=== PATIENT | male | born 1945 | race Caucasian/White ===

== ENCOUNTER 2021-10-08 09:42 | Emergency (ER) | payer OTHER, MEDICARE ==
[2021-10-08 09:50] VITALS: RESP 18; TEMP 98.4
--- NOTE | 2021-10-08 09:57 | ED ---
General Adult HPI - General Chief complaint: Fall Stated complaint: fall, rt hip pain Time Seen by Provider: 10/08/21 09:47 Source: patient, EMS, RN notes reviewed Mode of arrival: EMS Limitations: no limitations - History of Present Illness Initial comments: Patient is a pleasant 76-year-old male presenting to the emergency department following a fall. Patient was transferring off of his scooter at home when he fell. Patient landed on his right side. Patient has minimal discomfort at rest but more severe with movement. Patient mostly has discomfort of his right hip. Patient also has some discomfort of right ribs and right shoulder. No dyspnea. No abdominal pain. No neck or back pain. No head injury or loss of consciousness. - Related Data Allergies Allergy/AdvReac Type Severity Reaction Status Date / Time No Known Allergies Allergy Verified 10/08/21 09:51 Review of Systems ROS Statement: Those systems with pertinent positive or pertinent negative responses have been documented in the HPI. ROS Other: All systems not noted in ROS Statement are negative. Constitutional: Denies: fever Eyes: Denies: eye pain ENT: Denies: ear pain Respiratory: Denies: cough, dyspnea Cardiovascular: Reports: as per HPI Endocrine: Denies: fatigue Gastrointestinal: Denies: abdominal pain Genitourinary: Denies: dysuria Musculoskeletal: Reports: as per HPI. Denies: back pain Skin: Denies: rash Neurological: Denies: weakness Past Medical History Past Medical History: COPD, Diabetes Mellitus, Hypertension History of Any Multi-Drug Resistant Organisms: None Reported Past Surgical History: Back Surgery, Orthopedic Surgery Additional Past Surgical History / Comment(s): rectal surgery Past Psychological History: No Psychological Hx Reported Smoking Status: Current every day smoker Past Alcohol Use History: Daily Past Drug Use History: None Reported General Exam Limitations: no limitations General appearance: alert, in no apparent distress Head exam: Present: atraumatic Eye exam: Present: normal appearance, PERRL Neck exam: Present: normal inspection, full ROM. Absent: tenderness Respiratory exam: Present: normal lung sounds bilaterally, chest wall tenderness (Right lateral chest, mild) Cardiovascular Exam: Present: regular rate, normal rhythm Expanded Peripheral pulses: 2+: Radial (R), Posterior Tibialis (R), Dorsalis Pedis (R) GI/Abdominal exam: Present: soft. Absent: tenderness Extremities exam: Present: tenderness (Mild tenderness right shoulder, full range of motion. Moderate tenderness right lateral and anterior hip, limited range of motion.), other (Distally 70s are neurovascularly intact) Neurological exam: Present: alert Psychiatric exam: Present: normal affect, normal mood Skin exam: Present: normal color Course Vital Signs 10/08/21 09:43 Temperature 98.4 F Pulse Rate 67 Respiratory 18 Rate Blood Pressure 98/68 O2 Sat by Pulse 94 L Oximetry Medical Decision Making - Medical Decision Making Patient reevaluated and resting comfortably in bed. Patient is now receptive to pain medication. Patient updated on results. Discussion had regarding CT however patient feels nothing is broken and this is unnecessary. Patient does request discharge home. - Radiology Data Radiology results: image reviewed (X-ray right shoulder, right hip and pelvis, and right ribs reveal no acute abnormality) Disposition Clinical Impression: Fall, Contusion, hip Disposition: HOME SELF-CARE Condition: Stable Instructions (If sedation given, give patient instructions): Fall Prevention (ED), Hip Contusion (ED) Additional Instructions: Please follow-up with primary care physician in the next couple days for recheck. Return for increased pain, unable to take care of self, unable to walk, worsening or change in symptoms or other concerns. Is patient prescribed a controlled substance at d/c from ED?: No Referrals: Alek Dykes MD [STAFF PHYSICIAN] - 1-2 days Time of Disposition: 11:30
--- NOTE | 2021-10-08 10:41 | XR ---
EXAMINATION TYPE: XR shoulder complete RT DATE OF EXAM: 10/08/2021 CLINICAL HISTORY: pain TECHNIQUE: Three views of the right shoulder are obtained. COMPARISON: None FINDINGS: There is no acute fracture/dislocation evident. The acromioclavicular and glenohumeral lachelle int spaces appear within normal limits. The visualized ribs are intact and unremarkable. IMPRESSION: 1. There is no acute fracture or dislocation. ICD 10 NO FRACTURE, INITIAL EVALUATION
--- NOTE | 2021-10-08 10:42 | XR ---
EXAMINATION TYPE: XR Hip RT and AP Pelvis DATE OF EXAM: 10/08/2021 CLINICAL HISTORY: pain TECHNIQUE: AP and frogleg views of the right hip are obtained. Single view of the pelvis is submitte d. COMPARISON: None. FINDINGS: There is no acute fracture/dislocation evident. The joint space appears mildly narrowed. The overlying soft tissue appears unremarkable. Total left hip arthroplasty noted. IMPRESSION: 1. There is no acute fracture or dislocation. ICD 10 NO FRACTURE, INITIAL EVALUATION
--- NOTE | 2021-10-08 10:44 | XR ---
EXAMINATION TYPE: XR ribs RT w pa chest xray DATE OF EXAM: 10/08/2021 COMPARISON: NONE HISTORY: Pain TECHNIQUE: Single view of the chest 4 views of the ribs are submitted. FINDINGS: The lungs are clear. No Evidence for pneumothorax. No evidence for focal contusion. Medi astinal structures are midline. Evaluation of the ribs fails to demonstrate evidence for displaced r ib fracture or secondary sign of rib fracture. IMPRESSION: Negative study
[2021-10-08] MEDS ORDERED: MORPHINE SULFATE 4 MG/ML SYRINGE IVP STA (11:06)
[2021-10-08] MEDS ORDERED: ACET/COD 300 MG/30 MG STARTER PACK 6 TAB BTL PO STA (11:07)
[2021-10-08 12:29] VITALS: BP 100/71; PULSE 79
== END 2021-10-08 12:20 | disposition home or self-care (01) ==
LOC: EC 09:42
DX: S70.01XA Contusion of right hip, initial encounter (principal); J44.9 Chronic obstructive pulmonary disease, unspecified; E11.9 Type 2 diabetes mellitus without complications; I10 Essential (primary) hypertension; F17.200 Nicotine dependence, unspecified, uncomplicated; Z72.89 Other problems related to lifestyle; V00.141A Fall from scooter (nonmotorized), initial encounter
CPT/HCPCS: 71101; 73502; 73030; 99283; 96374; J2270

== ENCOUNTER 2021-12-10 13:18 | Inpatient (IN) | payer OTHER ==
--- NOTE | 2021-12-10 14:06 | ED ---
General Adult HPI - General Chief complaint: Syncope Stated complaint: Syncope Time Seen by Provider: 12/10/21 13:46 Source: patient, EMS Mode of arrival: EMS Limitations: no limitations - History of Present Illness Initial comments: Dictation was produced using [employer] dictation software. please excuse any grammatical, word or spelling errors. Chief Complaint: 76-year-old male with past medical history of COPD, diabetes and hypertension presents after syncopal episode History of Present Illness: 76-year-old male he was sent in from the [place] clinic. Patient had a syncopal episode while in the office. Patient states he's had multiple syncopal episodes over the last couple months. Patient states that before he syncopized as he starts to feel a little lightheaded. Patient denies any history of heart failure. Patient states he knows he's been passing out at home because he wakes up on the floor. He has no pain today. Patient has any chest pain or shortness of breath. He has no known history of cardiac disease or heart failure. Patient does have some bedsores that have been chronic. Patient otherwise asymptomatic at the bedside. The ROS documented in this emergency department record has been reviewed and confirmed by me. Those systems with pertinent positive or negative responses have been documented in the HPI. All other systems are other negative and/or noncontributory. PHYSICAL EXAM: General Impression: Alert and oriented x3, not in acute distress HEENT: Normocephalic atraumatic, extra-ocular movements intact, pupils equal and reactive to light bilaterally, mucous membranes moist. Cardiovascular: Heart regular rate and rhythm Chest: Able to complete full sentences, no retractions, no tachypnea Abdomen: abdomen soft, non-tender, non-distended, no organomegaly Musculoskeletal: Pulses present and equal in all extremities, no peripheral edema Motor: no focal deficits noted Neurological: CN II-XII grossly intact, no focal motor or sensory deficits noted Skin: Intact with no visualized rashes Psych: Normal affect and mood ED course: 76-year-old now presents to the emergency department after syncopal episode. Vital signs upon arrival shows heart rate of 111, rest of vital signs within acceptable limits. EKG shows sinus tachycardia. Computer interpretation suggests A. fib however there is a lot of artifact. quality assurance monitor body shows regular P waves. Laboratory evaluation obtained. CBC metabolic panel is within acceptable limits. Troponin is negative. Brain natruretic peptide is 1350. Patient was or the emergency department for proximally 4 hours. He is reevaluated at 5:00 PM found to be stable medical condition. Patient observed in emergency department. Patient's vital signs improved. He is resting comfortably at the bedside. Given patient's age, frequent syncopal episodes and slight concern for heart failure patient be admitted to observation for cardiac monitoring and cardiology consultation. Patient admitted to city call. EKG interpretation: Ventricular rate 104, computer interpretation suggests A. fib with rapid ventricular response however there is a lot of artifact and there is difficulty delineating P waves. The QRS complexes do appear to be occurring at regular intervals.. quality assurance monitor body shows more clear P waves. EKG is likely sinus tachycardia. - Related Data Home Medications Medication Instructions Recorded Confirmed Albuterol Inhaler [Ventolin Hfa 1 puff INHALATION RT-QID PRN 12/10/21 12/10/21 Inhaler] Ascorbic Acid [Vitamin C] 250 mg PO DAILY 12/10/21 12/10/21 Aspirin EC [Ecotrin Low Dose] 81 mg PO DAILY 12/10/21 12/10/21 Atorvastatin [Lipitor] 40 mg PO HS 12/10/21 12/10/21 Cholecalciferol [Vitamin D3 (25 50 mcg PO DAILY 12/10/21 12/10/21 Mcg = 1000 Iu)] Escitalopram Oxalate [Lexapro] 10 mg PO DAILY 12/10/21 12/10/21 Ferrous Sulfate [Feosol] 325 mg PO DAILY 12/10/21 12/10/21 Fluticasone Nasal [place] [Flonase 1 spray EA NOSTRIL DAILY 12/10/21 12/10/21 Nasal [place]] Fluticasone/Salmeterol [Advair 1 puff INHALATION RT-BID 12/10/21 12/10/21 250-50 Diskus] Folic Acid 1 mg PO DAILY 12/10/21 12/10/21 Furosemide [Lasix] 20 mg PO DAILY 12/10/21 12/10/21 Ipratropium-Albuterol Nebulize 3 ml INHALATION RT-Q6H PRN 12/10/21 12/10/21 [Duoneb 0.5 mg-3 mg/3 ml Soln] Megestrol Acetate 10 mg PO DAILY 12/10/21 12/10/21 Metoprolol Succinate [Toprol XL] 25 mg PO DAILY 12/10/21 12/10/21 Mirtazapine [Remeron] 30 mg PO HS 12/10/21 12/10/21 Montelukast [Singulair] 10 mg PO DAILY 12/10/21 12/10/21 Omeprazole 20 mg PO BID 12/10/21 12/10/21 Potassium Chloride [K-Tab ER] 20 meq PO DAILY 12/10/21 12/10/21 Pyridoxine HCl (Vitamin B6) 25 mg PO DAILY 12/10/21 12/10/21 [Pyridoxine HCl] Tiotropium 18 Mcg/Puff [Spiriva] 2 puff INHALATION RT-DAILY 12/10/21 12/10/21 Allergies Allergy/AdvReac Type Severity Reaction Status Date / Time No Known Allergies Allergy Verified 12/10/21 16:19 Review of Systems ROS Statement: Those systems with pertinent positive or pertinent negative responses have been documented in the HPI. ROS Other: All systems not noted in ROS Statement are negative. Past Medical History Past Medical History: COPD, Diabetes Mellitus, Hypertension History of Any Multi-Drug Resistant Organisms: None Reported Past Surgical History: Back Surgery, Orthopedic Surgery Additional Past Surgical History / Comment(s): rectal surgery Past Psychological History: No Psychological Hx Reported Smoking Status: Current every day smoker Past Alcohol Use History: Daily Past Drug Use History: None Reported General Exam Limitations: no limitations Course Vital Signs 12/10/21 12/10/21 12/10/21 13:29 15:00 16:16 Temperature 97.4 F L Pulse Rate 111 H 98 96 Respiratory 18 18 Rate Blood Pressure 129/79 89/62 110/71 O2 Sat by Pulse 98 95 96 Oximetry Medical Decision Making - Lab Data Result diagrams: 12/10/21 14:08 12/10/21 14:08 Lab Results 12/10/21 12/10/21 12/10/21 Range/Units 14:08 14:08 14:08 WBC 8.5 (3.8-10.6) k/uL RBC 2.89 L (4.30-5.90) m/uL Hgb 9.3 L (13.0-17.5) gm/dL Hct 27.9 L (39.0-53.0) % MCV 96.6 (80.0-100.0) fL MCH 32.3 (25.0-35.0) pg MCHC 33.4 (31.0-37.0) g/dL RDW 16.8 H (11.5-15.5) % Plt Count 219 (150-450) k/uL MPV 7.0 Neutrophils % 78 % Lymphocytes % 12 % Monocytes % 6 % Eosinophils % 2 % Basophils % 0 % Neutrophils # 6.6 (1.3-7.7) k/uL Lymphocytes # 1.0 (1.0-4.8) k/uL Monocytes # 0.5 (0-1.0) k/uL Eosinophils # 0.2 (0-0.7) k/uL Basophils # 0.0 (0-0.2) k/uL Anisocytosis Slight Sodium 132 L (137-145) mmol/L Potassium 3.3 L (3.5-5.1) mmol/L Chloride 92 L (98-107) mmol/L Carbon Dioxide 29 (22-30) mmol/L Anion Gap 11 mmol/L BUN 9 (9-20) mg/dL Creatinine 1.02 (0.66-1.25) mg/dL Est GFR (CKD-EPI)AfAm 84 (>60 ml/min/1.73 sqM) Est GFR (CKD-EPI)NonAf 72 (>60 ml/min/1.73 sqM) Glucose 97 (74-99) mg/dL Calcium 7.4 L (8.4-10.2) mg/dL Troponin I (0.000-0.034) ng/mL NT-Pro-B Natriuret Pep 1350 pg/mL 12/10/21 Range/Units 14:10 WBC (3.8-10.6) k/uL RBC (4.30-5.90) m/uL Hgb (13.0-17.5) gm/dL Hct (39.0-53.0) % MCV (80.0-100.0) fL MCH (25.0-35.0) pg MCHC (31.0-37.0) g/dL RDW (11.5-15.5) % Plt Count (150-450) k/uL MPV Neutrophils % % Lymphocytes % % Monocytes % % Eosinophils % % Basophils % % Neutrophils # (1.3-7.7) k/uL Lymphocytes # (1.0-4.8) k/uL Monocytes # (0-1.0) k/uL Eosinophils # (0-0.7) k/uL Basophils # (0-0.2) k/uL Anisocytosis Sodium (137-145) mmol/L Potassium (3.5-5.1) mmol/L Chloride (98-107) mmol/L Carbon Dioxide (22-30) mmol/L Anion Gap mmol/L BUN (9-20) mg/dL Creatinine (0.66-1.25) mg/dL Est GFR (CKD-EPI)AfAm (>60 ml/min/1.73 sqM) Est GFR (CKD-EPI)NonAf (>60 ml/min/1.73 sqM) Glucose (74-99) mg/dL Calcium (8.4-10.2) mg/dL Troponin I <0.012 (0.000-0.034) ng/mL NT-Pro-B Natriuret Pep pg/mL Disposition Clinical Impression: Syncope Disposition: ADMITTED IP TO THIS [facility] Condition: Fair Referrals: None,Stated [Primary Care Provider] - 1-2 days Decision Time: 17:28
[2021-12-10 14:51] LABS: Calcium 7.4 mg/dL (8.4-10.2); Potassium 3.3 mmol/L (3.5-5.1)
[2021-12-10 14:58] LABS: Anisocytosis Slight; Basophils % (A) 0 %; Eosinophils # (A) 0.2 k/uL (0-0.7); Eosinophils % (A) 2 %; HCT 27.9 % (39.0-53.0); HGB 9.3 gm/dL (13.0-17.5); Lymphocytes % (A) 12 %; MCH 32.3 pg (25.0-35.0); MCHC 33.4 g/dL (31.0-37.0); MCV 96.6 fL (80.0-100.0); Monocytes # (A) 0.5 k/uL (0-1.0); Monocytes % (A) 6 %; Neutrophils # (A) 6.6 k/uL (1.3-7.7); Neutrophils % (A) 78 %; Platelet Count 219 k/uL (150-450); RBC 2.89 m/uL (4.30-5.90); RDW 16.8 % (11.5-15.5); WBC 8.5 k/uL (3.8-10.6)
[2021-12-10] MEDS ORDERED: NALOXONE 0.4 MG/ML 1 ML VIAL IV PRN (17:24)
[2021-12-10] MEDS: SODIUM CHLORIDE 0.9% 1,000 ML IV SCH (19:10)
[2021-12-10] MEDS ORDERED: POTASSIUM CHLORIDE ER 20 MEQ TAB.ER PO STA (20:19)
[2021-12-10] MEDS ORDERED: IPRATROPIUM-ALBUTEROL 3 ML NEB INHALATION PRN (22:31)
[2021-12-10] MEDS ORDERED: ALBUTEROL HFA INHALER INHALATION PRN (22:31)
[2021-12-11] MEDS: SYMBICORT 80-4.5 MCG INHALER INHALATION SCH ×2 (08:30→19:17)
[2021-12-11] MEDS: IPRATROPIUM 0.5 MG/2.5 ML NEBU INHALATION SCH ×4 (08:30→19:16)
[2021-12-11] MEDS: PANTOPRAZOLE 40 MG TABLET PO SCH (08:47)
[2021-12-11] MEDS: FOLIC ACID 1 MG TAB PO SCH (08:47)
[2021-12-11] MEDS: FERROUS SULFATE 325 MG TAB PO SCH (08:47)
[2021-12-11] MEDS: MONTELUKAST 10 MG TAB PO SCH (08:47)
[2021-12-11] MEDS: ASPIRIN 81 MG PO SCH (08:47)
[2021-12-11] MEDS: ASCORBIC ACID 500 MG TAB PO SCH (08:48)
[2021-12-11] MEDS: CHOLECALCIFEROL 25 MCG (1000 IU) TABLET PO SCH (08:48)
[2021-12-11] MEDS: POTASSIUM CHLORIDE ER 20 MEQ TAB.ER PO SCH (08:49)
[2021-12-11] MEDS: MEGESTROL 400 MG/10 ML CUP PO SCH ×2 (08:55→09:16)
[2021-12-11] MEDS: PYRIDOXINE 50 MG TAB PO SCH (08:55)
[2021-12-11] MEDS: ESCITALOPRAM 10 MG TAB PO SCH (08:55)
[2021-12-11] MEDS ORDERED: FUROSEMIDE 20 MG TAB PO SCH (09:00)
[2021-12-11] MEDS ORDERED: METOPROLOL SUCCINATE (ER) 25 MG TAB.ER.24H PO SCH (09:00)
[2021-12-11 10:00] VITALS: BMI 24.0
[2021-12-11] MEDS: SODIUM CHLORIDE 0.9% 1,000 ML IV SCH ×3 (10:36→21:37)
[2021-12-11] MEDS: FLUTICASONE 50MCG/SPRAY NASAL 16GM EA NOSTRIL SCH (11:56)
--- NOTE | 2021-12-11 12:10 | P.CRDCN ---
History of Present Illness Consult date: 12/11/21 Consult reason: sycope History of present illness: This is Tao Delvalle NP, I'm dictating on behalf of Dr. Roman's H&P and A&P The patient was interviewed and examined. HPI: [Patient is a pleasant 76-year-old male who initially presented to hospital with complaints of syncope. Patient reports that he's been passing out consistently over the last few months, and stating that he's passed out around a dozen times. Patient reports that he doesn't eat much at home, reports he drinks no water, but prefers vodka and squirt. Patient reports that the last couple of times he passed out, it was while he was transferring from his roller chair to the bathroom, but states generally passes out when coughing. Patient was evaluated in the emergency department, after having a syncopal episode while at the [place] clinic. Patient was evaluated in the ER, was found to have sinus tachycardia on EKG. Patient's potassium and sodium were found to be low. And patient was subsequently admitted with cardiology consultation for evaluation of the syncope. Patient has a past medical history that includes COPD, diabetes, and hypertension. His past surgical history that includes back surgery, and rectal surgery. Patient reports his current every day smoker, also reports daily alcohol use, but denies illicit substance use. Patient was interviewed and examined while lying in the bed. Patient reports that he feels somewhat better than yesterday. Patient appears to be clinically dry.] ROS: [No fever, chills, or rigors] [no cough, phlegm, or expectoration] [no nausea, vomiting, or diarrhea] [no hematuria, dysuria] [no musculoskelatal complaints] [no strokes or seizures] [no skin lesions] EXAMINATION: GENERAL: Well-appearing, well-nourished and in no acute distress. NECK: Supple without JVD or thyromegaly. LUNGS: Breath sounds clear to auscultation bilaterally. Respiration equal and unlabored. No wheezes, rales or rhonchi. HEART: Regular rate and rhythm without murmurs, rubs or gallops. S1 and S2 heard. EXTREMITIES: Normal range of motion, no edema. No clubbing or cyanosis. Peripheral pulses intact and strong. REVIEW OF LABS, ECG & MEDICAL DATA: LABS: White count 8.5, hemoglobin 9.3, platelets 219, sodium 132, potassium 3.3, B1 9, creatinine 1.0 to, calcium 7.4, troponin 2 less than 0.012, BNP 1350. EKG: Normal sinus rhythm IMAGING: None VITALS: Orthostatics completed this morning demonstrated a blood pressure supine 96/58, sitting 92/62, standing 92/60. Patient's heart rate is elevated at 108, likely secondary to dehydration. IMPRESSION/PLAN: [1. Syncope-likely secondary to dehydration. Start patient on 0.9 sodium chloride at 75 ML/hour. Hold metoprolol today. 2. Dehydration-recheck orthostatics tomorrow morning after IV fluids. Increase sodium intake. Further recommendations based on patient's clinical course.] Thank you for the consult and allowing us to participate in the care of this patient. Past Medical History Past Medical History: COPD, Diabetes Mellitus, Hypertension History of Any Multi-Drug Resistant Organisms: None Reported Past Surgical History: Back Surgery, Orthopedic Surgery Additional Past Surgical History / Comment(s): rectal surgery Past Psychological History: No Psychological Hx Reported Smoking Status: Current every day smoker Past Alcohol Use History: Daily Past Drug Use History: None Reported Medications and Allergies Home Medications Medication Instructions Recorded Confirmed Type Albuterol Inhaler [Ventolin Hfa 1 puff INHALATION RT-QID PRN 12/10/21 12/10/21 History Inhaler] Ascorbic Acid [Vitamin C] 250 mg PO DAILY 12/10/21 12/10/21 History Aspirin EC [Ecotrin Low Dose] 81 mg PO DAILY 12/10/21 12/10/21 History Atorvastatin [Lipitor] 40 mg PO HS 12/10/21 12/10/21 History Cholecalciferol [Vitamin D3 (25 50 mcg PO DAILY 12/10/21 12/10/21 History Mcg = 1000 Iu)] Escitalopram Oxalate [Lexapro] 10 mg PO DAILY 12/10/21 12/10/21 History Ferrous Sulfate [Feosol] 325 mg PO DAILY 12/10/21 12/10/21 History Fluticasone/Salmeterol [Advair 1 puff INHALATION RT-BID 12/10/21 12/10/21 History 250-50 Diskus] Folic Acid 1 mg PO DAILY 12/10/21 12/10/21 History Furosemide [Lasix] 20 mg PO DAILY 12/10/21 12/10/21 History Ipratropium-Albuterol Nebulize 3 ml INHALATION RT-Q6H PRN 12/10/21 12/10/21 History [Duoneb 0.5 mg-3 mg/3 ml Soln] Megestrol Acetate 10 mg PO DAILY 12/10/21 12/10/21 History Metoprolol Succinate [Toprol XL] 25 mg PO DAILY 12/10/21 12/10/21 History Mirtazapine [Remeron] 30 mg PO HS 12/10/21 12/10/21 History Montelukast [Singulair] 10 mg PO DAILY 12/10/21 12/10/21 History Omeprazole 20 mg PO BID 12/10/21 12/10/21 History Potassium Chloride [K-Tab ER] 20 meq PO DAILY 12/10/21 12/10/21 History Pyridoxine HCl (Vitamin B6) 25 mg PO DAILY 12/10/21 12/10/21 History [Pyridoxine HCl] Tiotropium 18 Mcg/Puff [Spiriva] 2 puff INHALATION RT-DAILY 12/10/21 12/10/21 History Gabapentin 900 mg PO BID 12/11/21 12/11/21 History Allergies Allergy/AdvReac Type Severity Reaction Status Date / Time No Known Allergies Allergy Verified 12/10/21 16:19 Physical Exam Vitals: Vital Signs Temp Pulse Pulse Pulse Pulse Pulse Resp 12/11/21 08:42 104 H 12/11/21 08:31 108 H 12/11/21 08:16 16 12/11/21 07:00 116 H 127 H 106 H 12/11/21 01:40 98.4 F 99 16 12/10/21 21:55 98.1 F 104 H 18 12/10/21 21:08 93 18 12/10/21 20:03 98.5 F 103 H 18 12/10/21 16:16 96 18 12/10/21 15:00 97.4 F L 98 12/10/21 13:29 111 H 18 BP BP BP BP BP Pulse Ox 12/11/21 08:42 12/11/21 08:31 12/11/21 08:16 12/11/21 07:00 92/62 92/60 96/58 94 L 12/11/21 01:40 89/55 95 12/10/21 21:55 94/65 97 12/10/21 21:08 95 12/10/21 20:03 101/79 96 12/10/21 16:16 110/71 96 12/10/21 15:00 89/62 95 12/10/21 13:29 129/79 98 Intake and Output 12/10/21 12/11/21 12/11/21 22:59 06:59 14:59 Intake Total 118 Balance 118 Intake: Oral 118 Other: Voiding Method Urinal # Voids 0 1 # Bowel Movements 1 Weight 78.245 kg 78.245 kg Results 12/10/21 14:08 12/10/21 14:08 Cardiac Enzymes 12/10/21 12/10/21 Range/Units 14:08 14:10 Troponin I <0.012 <0.012 (0.000-0.034) ng/mL CBC 12/10/21 Range/Units 14:08 WBC 8.5 (3.8-10.6) k/uL RBC 2.89 L (4.30-5.90) m/uL Hgb 9.3 L (13.0-17.5) gm/dL Hct 27.9 L (39.0-53.0) % Plt Count 219 (150-450) k/uL Comprehensive Metabolic Panel 12/10/21 Range/Units 14:08 Sodium 132 L (137-145) mmol/L Potassium 3.3 L (3.5-5.1) mmol/L Chloride 92 L (98-107) mmol/L Carbon Dioxide 29 (22-30) mmol/L BUN 9 (9-20) mg/dL Creatinine 1.02 (0.66-1.25) mg/dL Glucose 97 (74-99) mg/dL Calcium 7.4 L (8.4-10.2) mg/dL Current Medications Generic Name Dose Route Start Last Admin Trade Name Freq PRN Reason Stop Dose Admin Albuterol/Ipratropium 3 ml 12/10/21 22:31 Ipratropium-Albuterol 3 Ml Neb INHALATION RT-Q6H PRN Shortness Of Breath Ascorbic Acid 250 mg 12/11/21 09:00 12/11/21 08:48 Ascorbic Acid 500 Mg Tab PO 250 mg DAILY UVALDO Administration Aspirin 81 mg 12/11/21 09:00 12/11/21 08:47 Aspirin 81 Mg PO 81 mg DAILY [facility] Administration Atorvastatin Calcium 40 mg 12/11/21 21:00 Atorvastatin 40 Mg Tab PO HS [facility] Budesonide/Formoterol Fumarate 2 puff 12/11/21 08:00 12/11/21 08:30 Symbicort 80-4.5 Mcg Inhaler INHALATION 2 puff RT-BID UVALDO Administration Cholecalciferol 50 mcg 12/11/21 09:00 12/11/21 08:48 Cholecalciferol 25 Mcg (1000 Iu) Tablet PO 50 mcg DAILY [facility] Administration Escitalopram Oxalate 10 mg 12/11/21 09:00 12/11/21 08:55 Escitalopram 10 Mg Tab PO 10 mg DAILY [facility] Administration Ferrous Sulfate 325 mg 12/11/21 09:00 12/11/21 08:47 Ferrous Sulfate 325 Mg Tab PO 325 mg DAILY [facility] Administration Fluticasone Propionate 1 spray 12/11/21 09:00 12/11/21 11:56 Fluticasone 50mcg/Pavo Nasal 16gm EA NOSTRIL Not Given DAILY [facility] Folic Acid 1 mg 12/11/21 09:00 12/11/21 08:47 Folic Acid 1 Mg Tab PO 1 mg DAILY [facility] Administration Furosemide 20 mg 12/11/21 09:00 12/11/21 08:48 Furosemide 20 Mg Tab PO 20 mg DAILY [facility] Administration Sodium Chloride 1,000 mls @ 20 mls/hr 12/10/21 17:30 12/10/21 19:10 Saline 0.9% IV Not Given .Q24H [facility] Sodium Chloride 1,000 mls @ 75 mls/hr 12/11/21 08:45 12/11/21 10:36 Saline 0.9% IV Not Given .[id number] [facility] Ipratropium [place] 0.5 mg 12/11/21 08:00 12/11/21 08:30 Ipratropium 0.5 Mg/2.5 Ml Nebu INHALATION 0.5 mg RT-QID [facility] Administration Megestrol Acetate 400 mg 12/11/21 09:00 12/11/21 09:16 Megestrol 400 Mg/10 Ml Cup PO Not Given DAILY [facility] Metoprolol Succinate 25 mg 12/11/21 09:00 12/11/21 08:53 Metoprolol Succinate (Er) 25 Mg Tab.Er.24h PO Not Given DAILY [facility] Mirtazapine 30 mg 12/11/21 21:00 Mirtazapine 15 Mg Tab PO HS UVALDO Montelukast Sodium 10 mg 12/11/21 09:00 12/11/21 08:47 Montelukast 10 Mg Tab PO 10 mg DAILY U[facility] Administration Naloxone HCl 0.2 mg 12/10/21 17:24 Naloxone 0.4 Mg/Ml 1 Ml Vial IV Q2M PRN Opioid Reversal Pantoprazole Sodium 40 mg 12/11/21 07:30 12/11/21 08:47 Pantoprazole 40 Mg Tablet PO 40 mg [id number] UVALDO Administration Potassium Chloride 20 meq 12/11/21 09:00 12/11/21 08:49 Potassium Chloride Er 20 Meq Tab.Er PO 20 meq DAILY UVALDO Administration Pyridoxine HCl 25 mg 12/11/21 09:00 12/11/21 08:55 Pyridoxine 50 Mg Tab PO 25 mg DAILY UVALDO Administration Intake and Output 12/10/21 12/11/21 12/11/21 22:59 06:59 14:59 Intake Total 118 Balance 118 Intake: Oral 118 Other: Voiding Method Urinal # Voids 0 1 # Bowel Movements 1 Weight 78.245 kg 78.245 kg Patient Weight 12/12/21 06:59 Weight 78.245 kg 12/10/21 14:08 12/10/21 14:08
--- NOTE | 2021-12-11 18:50 | HP ---
HISTORY AND PHYSICAL DATE OF SERVICE: 12/11/2021 CHIEF COMPLAINT: Syncope. HISTORY OF PRESENT ILLNESS: This 76-year-old gentleman with a past medical history of COPD and diabetes mellitus was having recurrent syncope for the last couple of months. The patient apparently had syncope yesterday. The was patient taken to [facility]. The patient was feeling dizzy prior to syncope. There is no history of any fever, rigor or chills. Dehydration was considered. Cardiology is also following the patient closely. PAST MEDICAL HISTORY: History of COPD, diabetes mellitus. HOME MEDICATIONS: Reviewed. They include gabapentin. Doses and other medications are reviewed. ALLERGIES: NONE. FAMILY HISTORY: No history of heart disease or strokes in the family. SOCIAL HISTORY: History of smoking. REVIEW OF SYSTEMS: Fourteen-point review of systems negative except as mentioned earlier. PHYSICAL EXAMINATION: Pulse is 114, blood pressure 95/60, respirations 16. HEENT: Conjunctivae pale. Oral mucosa dry. NECK: No jugular venous distention. No carotid bruit. No lymph node enlargement. CARDIOVASCULAR: S1, S2 muffled. RESPIRATION: Breath sounds diminished at the bases. A few scattered rhonchi. No crackles. ABDOMEN: Soft, nontender. LEGS: No edema. No swelling. NERVOUS SYSTEM: Diffusely weak. LABS: WBC 8.2, hemoglobin 9.7, sodium 138, potassium ntd ASSESSMENT: 1. Syncope for evaluation, possibly orthostatic hypotension secondary to dehydration. 2. Hyponatremia. 3. Hypokalemia. 4. Diabetes mellitus, type 2. 5. Chronic obstructive pulmonary disease. 6. Hypertension. RECOMMENDATIONS AND DISCUSSION: In this 77-year-old gentleman who presented with multiple complex medical problems, we will monitor the patient closely, continue the IV fluids. We will cut down the dose of blood pressure medications. Orthostatic vitals. Stop the diuretics. The prognosis is guarded because of multiple complex medical issues. Further recommendations to follow. See orders for further details. Closely follow with Cardiology. Prognosis guarded. MMODL / IJN: [id number] / MTDD
[2021-12-11] MEDS: MIRTAZAPINE 15 MG TAB PO SCH (19:59)
[2021-12-11] MEDS: ATORVASTATIN 40 MG TAB PO SCH (19:59)
[2021-12-11] MEDS: GABAPENTIN 300 MG CAP PO SCH (20:43)
[2021-12-12 07:37] LABS: Appearance,Urine Clear (Clear); Bilirubin,Urine Negative (Negative); Blood,Urine Negative (Negative); Color,Urine Yellow; Glucose,Urine (UA) Negative (Negative); Ketones,Urine Negative (Negative); Leukocyte Esterase,Urine Trace (Negative); Nitrite,Urine Negative (Negative); Protein,Urine Negative (Negative); Squamous Epithelial Cell,Urine <1 /hpf (0-4); Urobilinogen,Urine <2.0 mg/dL (<2.0); WBC,Urine 2 /hpf (0-5)
[2021-12-12] MEDS: SYMBICORT 80-4.5 MCG INHALER INHALATION SCH ×2 (08:26→18:37)
[2021-12-12] MEDS: IPRATROPIUM 0.5 MG/2.5 ML NEBU INHALATION SCH ×4 (08:26→18:37)
[2021-12-12] MEDS: FERROUS SULFATE 325 MG TAB PO SCH (08:48)
[2021-12-12] MEDS: FOLIC ACID 1 MG TAB PO SCH (08:48)
[2021-12-12] MEDS: CHOLECALCIFEROL 25 MCG (1000 IU) TABLET PO SCH (08:48)
[2021-12-12] MEDS: PANTOPRAZOLE 40 MG TABLET PO SCH (08:48)
[2021-12-12] MEDS: MONTELUKAST 10 MG TAB PO SCH (08:48)
[2021-12-12] MEDS: POTASSIUM CHLORIDE ER 20 MEQ TAB.ER PO SCH (08:48)
[2021-12-12] MEDS: GABAPENTIN 300 MG CAP PO SCH ×2 (08:48→19:56)
[2021-12-12] MEDS: PYRIDOXINE 50 MG TAB PO SCH (08:49)
[2021-12-12] MEDS: ESCITALOPRAM 10 MG TAB PO SCH (08:49)
[2021-12-12] MEDS: FLUTICASONE 50MCG/SPRAY NASAL 16GM EA NOSTRIL SCH (08:51)
[2021-12-12] MEDS: MEGESTROL 400 MG/10 ML CUP PO SCH (08:51)
[2021-12-12] MEDS: ASPIRIN 81 MG PO SCH (08:51)
[2021-12-12] MEDS: ASCORBIC ACID 500 MG TAB PO SCH (08:51)
[2021-12-12] MEDS: METOPROLOL SUCCINATE (ER) 25 MG TAB.ER.24H PO SCH (10:30)
[2021-12-12] MEDS: FLUDROCORTISONE 0.1 MG TAB PO SCH (11:38)
[2021-12-12 11:56] LABS: African American GFR (CKD) 97.2 (60.0-200.0); Anion Gap 10.6 mmol/L (10.00-18.00); BUN/Creat Ratio 9.44 Ratio (12.00-20.00); Blood Urea Nitrogen 8.5 mg/dL (9.0-27.0); Calcium 7.8 mg/dL (8.7-10.3); Carbon Dioxide 32.4 mmol/L (20.0-27.5); Non-African American GFR(CKD) 83.8 (60.0-200.0); Potassium 3.7 mmol/L (3.5-5.5)
[2021-12-12 12:17] LABS: Basophils # (A) 0.04 X 10*3/uL (0.00-0.10); Basophils % (A) 0.7 %; Eosinophils # (A) 0.37 X 10*3/uL (0.04-0.35); Eosinophils % (A) 6.2 %; Immature Grans, Automated 0.5 %; Lymphocytes # (A) 1.19 X 10*3/uL (0.90-5.00); Monocytes # (A) 0.58 X 10*3/uL (0.20-1.00); Monocytes % (A) 9.7 %; NRBC Per 100 WBC 0 /100 WBCS (0.0-0.0); Neutrophils # (A) 3.75 X 10*3/uL (1.80-7.70); Neutrophils % (A) 62.9 %
[2021-12-12 12:21] LABS: HCT 21.7 % (39.6-50.0); HGB 6.8 g/dL (13.0-17.0); MCH 31.3 pg (27.0-32.0); MCHC 31.3 g/dL (32.0-37.0); Mean Platelet Volume 8.9 fL (9.5-12.2); Platelet Count 188 X 10*3/uL (140-440); RBC 2.17 X 10*6/uL (4.40-5.60); RDW 15.6 % (11.5-14.5); WBC 5.96 X 10*3/uL (4.50-10.00)
[2021-12-12] MEDS ORDERED: FUROSEMIDE 10 MG/ML 2 ML VIAL IV ONE (13:21)
--- NOTE | 2021-12-12 14:32 | P.PN ---
Subjective Progress Note Date: 12/12/21 This is Tao Delvalle NP, I'm dictating on behalf of Dr. Roman's H&P and A&P. Patient was interviewed and examined. Patient is a pleasant 76-year-old male who initially presented to the hospital with complaints of syncope. Patient reports that he is feeling better today. Orthostatic vital signs checked this morning were positive, with a sitting to standing drop of greater than 20 mmHg. Patient is receiving IV fluids since yesterday. His blood pressure does show improvement. Patient is on metoprolol for elevated heart rates, and his heart rate is elevated despite the metoprolol. It is felt at this time the patient may be experiencing withdrawal symptoms secondary to alcohol use. Will start Librium 10 mg 3 times a day when necessary for withdrawal symptoms. Recommend medical management for possible withdrawal symptoms. Will be difficult to manage the patient from a cardiology standpoint if the patient is active withdrawal. Patient is requesting to be discharged today. It's also noted the patient's hemoglobin is 6.8 today. Recommend possible general surgery consult for potential GI bleed. GENERAL: Well-appearing, well-nourished and in no acute distress. NECK: Supple without JVD or thyromegaly. LUNGS: Breath sounds clear to auscultation bilaterally. Respiration equal and u nlabored. No wheezes, rales or rhonchi. HEART: Regular rate and rhythm without murmurs, rubs or gallops. S1 and S2 heard. EXTREMITIES: Normal range of motion, no edema. No clubbing or cyanosis. Pe ripheral pulses intact and strong. VITALS: Temp 98.2, pulse 126, respirations 16, blood pressure 104/68 supine, 108/68 sitting, 76/53 standing. O2 saturation 95% on room air. TELEMETRY: Sinus tachycardia LABS: White count 5.96, hemoglobin 6.8, platelets 188, sodium 140, potassium 3.7, B1 8.5, creatinine 0.9 IMPRESSION/PLAN: 1. Vagal syncope-likely the cause of the patient's passing out, however the patient's medical situation is complicated secondary to both alcohol withdrawal, and a low hemoglobin. Patient has received IV fluids overnight, patient may generally run dehydrated, with a concentrated hemoglobin it's not reflective of his actual status. 2. Sinus tachycardia-multiple etiologies possible, including dehydration, low hemoglobin, and alcohol withdrawal. Patient was on IV fluids overnight, dehydration may be resolved. Started Librium 10 mg 3 times a day when necessary for possible withdrawal symptoms. Recommend medical management evaluate patient for withdrawal. Recommend general surgery consult for evaluation for GI bleed. Further recommendations based on the patient's clinical course. Objective - Vital Signs Vital signs: Vital Signs Temp 98.2 F 12/12/21 07:00 Pulse 100 12/12/21 12:05 Resp 16 12/12/21 08:43 BP 104/68 12/12/21 07:00 Pulse Ox 95 12/12/21 07:00 Intake & Output 12/11/21 12/12/21 12/12/21 18:59 06:59 18:59 Intake Total 594 Output Total 500 235 400 Balance 94 -235 -400 Weight 78.245 kg Intake: Oral 594 Output: Urine 500 235 400 Emesis 0 Other: Voiding Method Urinal Urinal Urinal # Voids 1 1 # Bowel Movements 2 1 - Labs CBC & Chem 7: 12/12/21 06:57 12/12/21 06:57 Labs: Abnormal Lab Results - Last 24 Hours (Table) 12/11/21 12/12/21 12/12/21 Range/Units 07:30 06:57 06:57 RBC 2.17 L (4.40-5.60) X 10*6/uL Hgb 6.8 L* (13.0-17.0) g/dL Hct 21.7 L (39.6-50.0) % MCV 100.0 H (80.0-97.0) fL MCHC 31.3 L (32.0-37.0) g/dL RDW 15.6 H (11.5-14.5) % MPV 8.9 L (9.5-12.2) fL Eosinophils # 0.37 H (0.04-0.35) X 10*3/uL Carbon Dioxide 32.4 H (20.0-27.5) mmol/L BUN 8.5 L (9.0-27.0) mg/dL BUN/Creatinine Ratio 9.44 L (12.00-20.00) Ratio Calcium 7.8 L (8.7-10.3) mg/dL Ur Leukocyte Esterase Trace H (Negative)
[2021-12-12] MEDS: SODIUM CHLORIDE 0.9% 1,000 ML IV SCH ×2 (14:58→22:33)
--- NOTE | 2021-12-12 19:31 | PN ---
PROGRESS NOTE DATE OF SERVICE: 12/12/2021 This 76-year-old gentleman who was admitted with syncope also had orthostatic hypotension. No chest pain. No palpitations. No fever. The hemoglobin has dropped to 6.8. PHYSICAL EXAMINATION: Alert and oriented x3. Pulse is 110, blood pressure is 80/45, respiration 18. HEENT: Conjunctivae normal. NECK: No jugular venous distention. CARDIOVASCULAR: S1, S2 muffled. RESPIRATION: Breath sounds diminished at the bases. A few scattered rhonchi. ABDOMEN: Soft, nontender. NERVOUS SYSTEM: No focal deficit. LABS: Hemoglobin 6.8. REVIEW OF SYMPTOMS: Fourteen-point review of systems negative. CURRENT MEDICATIONS: Reviewed. They include vitamin C, aspirin. Doses and rest of the medications are reviewed. ASSESSMENT: 1. Syncope for evaluation; possible orthostatic hypotension secondary to dehydration. 2. Anemia. Rule out acute blood loss anemia. 3. Hyponatremia. 4. Hypokalemia. 5. Diabetes mellitus, type 2. 6. Chronic obstructive pulmonary disease. 7. Hypertension. RECOMMENDATIONS AND DISCUSSION: I recommend to continue current medications, continue with the monitoring, symptomatic treatment. with Lasix. Repeat hemoglobin. Otherwise, gastroenterology and surgical evaluations. Overall prognosis guarded because of multiple complex medical issues. Further recommendations to follow. MMODL / IJN: [id number] / PEARL
[2021-12-12] MEDS: MIRTAZAPINE 15 MG TAB PO SCH (19:56)
[2021-12-12] MEDS: ATORVASTATIN 40 MG TAB PO SCH (19:56)
--- NOTE | 2021-12-12 21:38 | XR ---
EXAMINATION TYPE: XR chest 1V portable DATE OF EXAM: 12/12/2021 COMPARISON: 10/08/2021 HISTORY: Syncope TECHNIQUE: Single view FINDINGS: There is some mild linear density at the left lung base. Right lung is clear. Heart size is normal. There are no hilar masses. Thoracic aorta is atheromatous. There are chest leads. IMPRESSION: There is some mild scarring or subsegmental atelectasis left lung base. This appears incr eased compared to last exam.
[2021-12-12 22:09] LABS: Anisocytosis Slight; HCT 23.3 % (39.0-53.0); MCH 32.4 pg (25.0-35.0); MCHC 32.6 g/dL (31.0-37.0); MCV 99.3 fL (80.0-100.0); Macrocytosis Slight; Mean Platelet Volume 6.8; Platelet Count 220 k/uL (150-450); RBC 2.35 m/uL (4.30-5.90); RDW 16.5 % (11.5-15.5); WBC 6.2 k/uL (3.8-10.6)
[2021-12-12 22:17] LABS: HGB 7.6 gm/dL (13.0-17.5)
[2021-12-13 04:10] VITALS: TEMP 98.2
[2021-12-13 08:57] LABS: African American GFR (CKD) 89 (>60 ml/min/1.73 sqM); Anion Gap 1 mmol/L; Blood Urea Nitrogen 6 mg/dL (9-20); Calcium 7.3 mg/dL (8.4-10.2); Carbon Dioxide 36 mmol/L (22-30); Chloride 98 mmol/L (98-107); Glucose 85 mg/dL (74-99); Non-African American GFR(CKD) 77 (>60 ml/min/1.73 sqM); Potassium 3.7 mmol/L (3.5-5.1); Sodium 135 mmol/L (137-145)
[2021-12-13 10:32] LABS: Basophils % (A) 1 %; Eosinophils # (A) 0.4 k/uL (0-0.7); Eosinophils % (A) 6 %; HCT 23.1 % (39.0-53.0); HGB 7.6 gm/dL (13.0-17.5); Lymphocytes # (A) 1.4 k/uL (1.0-4.8); Lymphocytes % (A) 22 %; MCH 32.8 pg (25.0-35.0); MCV 99.5 fL (80.0-100.0); Macrocytosis Slight; Mean Platelet Volume 7.9; Monocytes # (A) 0.5 k/uL (0-1.0); Monocytes % (A) 8 %; Neutrophils # (A) 3.8 k/uL (1.3-7.7); Neutrophils % (A) 62 %; Platelet Count 232 k/uL (150-450); RBC 2.32 m/uL (4.30-5.90); WBC 6.1 k/uL (3.8-10.6)
--- NOTE | 2021-12-13 10:39 | PN ---
PROGRESS NOTE This is a gentleman who has been admitted to the hospital. He has [facility] He came in with some dizziness, lightheadedness and near-syncope. He has orthostatic changes and may have some dysautonomia. There is also a component of alcoholism. On standing, blood pressure is 100 and on lying down it is about 130. I am recommending that we encourage oral fluids and I will add midodrine 5 mg t.i.d. for this patient. He can be discharged and he wishes to have his follow-up care at the [facility]. I advised the patient to take midodrine 5 mg t.i.d. During his monitoring here, he did not have any tachy- or bradyarrhythmias. He remains in sinus rhythm. Vitals are stable with orthostatic changes as indicated above. S1-S2 heard normally. No significant murmurs. Lungs reveal bilateral decent air entry. Abdomen is soft, nontender. Rest of physical examination is unchanged. I am recommending that we add midodrine 5 mg t.i.d., increase activity, and he can be discharged later on today and follow up at the [facility] per his request. MMODL / IJN: [id number] /
[2021-12-13] MEDS: ASCORBIC ACID 500 MG TAB PO SCH (11:19)
[2021-12-13] MEDS: PANTOPRAZOLE 40 MG TABLET PO SCH (11:19)
[2021-12-13] MEDS: ASPIRIN 81 MG PO SCH (11:19)
[2021-12-13] MEDS: CHOLECALCIFEROL 25 MCG (1000 IU) TABLET PO SCH (11:19)
[2021-12-13] MEDS: ESCITALOPRAM 10 MG TAB PO SCH (11:19)
[2021-12-13] MEDS: METOPROLOL SUCCINATE (ER) 25 MG TAB.ER.24H PO SCH (11:20)
[2021-12-13] MEDS: FLUDROCORTISONE 0.1 MG TAB PO SCH (11:20)
[2021-12-13] MEDS: GABAPENTIN 300 MG CAP PO SCH (11:20)
[2021-12-13] MEDS: MEGESTROL 400 MG/10 ML CUP PO SCH (11:20)
[2021-12-13] MEDS: FOLIC ACID 1 MG TAB PO SCH (11:20)
[2021-12-13] MEDS: FLUTICASONE 50MCG/SPRAY NASAL 16GM EA NOSTRIL SCH (11:20)
[2021-12-13] MEDS: FERROUS SULFATE 325 MG TAB PO SCH (11:20)
[2021-12-13] MEDS: POTASSIUM CHLORIDE ER 20 MEQ TAB.ER PO SCH (11:21)
[2021-12-13] MEDS: PYRIDOXINE 50 MG TAB PO SCH (11:21)
[2021-12-13] MEDS: SYMBICORT 80-4.5 MCG INHALER INHALATION SCH (11:21)
[2021-12-13] MEDS: MONTELUKAST 10 MG TAB PO SCH (11:21)
[2021-12-13] MEDS: IPRATROPIUM 0.5 MG/2.5 ML NEBU INHALATION SCH ×3 (11:21→16:07)
[2021-12-13] MEDS: MIDODRINE 5 MG TAB PO SCH ×2 (12:40→17:42)
--- NOTE | 2021-12-13 13:49 | P.GSCN ---
History of Present Illness Consult date: 12/13/21 History of present illness: CHIEF COMPLAINT: Syncope HISTORY OF PRESENT ILLNESS: This is a 76-year-old male who presented to the hospital after a syncopal episode. He reports that he was at the [facility]. He reports that he had passed out after coughing. He reports that he's had a few syncopal episodes over the last couple of months. Patient denies any abdominal pain. Denies any nausea or vomiting. Denies any blood in his stools. Denies any black stools. Patient seen by cardiology regarding his syncopal episode and had evidence of orthostatic hypotension. They've added midodrine. Patient has been anemic. Hemoglobin was 9.3 on admission did drop down to 6.8. He required a unit of blood and now hemoglobin is stable at 7.6. He reports his last colon oscopy was a year ago in [place] where he had evidence of colon polyps. The polyps were noncancerous. He denies having an EGD in the past. Patient does take iron at home Patient seen and examined with Dr. smith PAST MEDICAL HISTORY: COPD, Diabetes Mellitus, Hypertension PAST SURGICAL HISTORY: Back surgery. Orthopedic surgery MEDICATIONS: See list. ALLERGIES: See list. SOCIAL HISTORY: No illicit drug use. Nicotine dependence REVIEW OF SYSTEMS: CONSTITUTIONAL: Denies fever or chills. HEENT: Denies blurred vision, vision changes, or eye pain. Denies hemoptysis CARDIOVASCULAR: Denies chest pain or pressure. RESPIRATORY: No shortness of breath. GASTROINTESTINAL: See HPI for pertinent findings HEMATOLOGIC: Denies bleeding disorders. GENITOURINARY: Denies any blood in urine or increased urinary frequency. SKIN: Denies pruitis. Denies rash. PHYSICAL EXAM: VITAL SIGNS: Reviewed GENERAL: Well-developed in no acute distress. HEENT: No sclera icterus. Extraocular movements grossly intact. Moist buccal mucosa. Head is atraumatic, normocephalic. No nasal drainage. ABDOMEN: Soft Nondistended. Nontender NEUROLOGIC: Alert and oriented. Cranial nerves II through XII grossly intact. LABORATORY DATA: WBC 6.1 hemoglobin 9.3 on admission down to 6.8 up to 7.6 today IMAGING: ASSESSMENT: 1. Anemia 2. Syncopal episode 3. Orthostatic hypotension PLAN: -Recommend EGD and colonoscopy. This can be done outpatient if patient is discharged. Otherwise plan for endoscopies this , 12/16/[address] Smith -Continue PPI -Continue regular diet -Continue to monitor hemoglobin -Continue to monitor for any signs or symptoms of bleeding -Syncope and orthostatic hypertension followed by cardiology Thank you for this consultation Physician Rehab Care Assistant note has been reviewed by physician. Signing provider agrees with the documented findings, assessment, and plan of care. Past Medical History Past Medical History: COPD, Diabetes Mellitus, Hypertension History of Any Multi-Drug Resistant Organisms: None Reported Past Surgical History: Back Surgery, Orthopedic Surgery Additional Past Surgical History / Comment(s): rectal surgery Past Psychological History: No Psychological Hx Reported Smoking Status: Current every day smoker Past Alcohol Use History: Daily Past Drug Use History: None Reported Medications and Allergies Home Medications Medication Instructions Recorded Confirmed Type Albuterol Inhaler [Ventolin Hfa 1 puff INHALATION RT-QID PRN 12/10/21 12/10/21 History Inhaler] Ascorbic Acid [Vitamin C] 250 mg PO DAILY 12/10/21 12/10/21 History Aspirin EC [Ecotrin Low Dose] 81 mg PO DAILY 12/10/21 12/10/21 History Atorvastatin [Lipitor] 40 mg PO HS 12/10/21 12/10/21 History Cholecalciferol [Vitamin D3 (25 50 mcg PO DAILY 12/10/21 12/10/21 History Mcg = 1000 Iu)] Escitalopram Oxalate [Lexapro] 10 mg PO DAILY 12/10/21 12/10/21 History Ferrous Sulfate [Feosol] 325 mg PO DAILY 12/10/21 12/10/21 History Fluticasone/Salmeterol [Advair 1 puff INHALATION RT-BID 12/10/21 12/10/21 History 250-50 Diskus] Folic Acid 1 mg PO DAILY 12/10/21 12/10/21 History Furosemide [Lasix] 20 mg PO DAILY 12/10/21 12/10/21 History Ipratropium-Albuterol Nebulize 3 ml INHALATION RT-Q6H PRN 12/10/21 12/10/21 History [Duoneb 0.5 mg-3 mg/3 ml Soln] Megestrol Acetate 10 mg PO DAILY 12/10/21 12/10/21 History Metoprolol Succinate [Toprol XL] 25 mg PO DAILY 12/10/21 12/10/21 History Mirtazapine [Remeron] 30 mg PO HS 12/10/21 12/10/21 History Montelukast [Singulair] 10 mg PO DAILY 12/10/21 12/10/21 History Omeprazole 20 mg PO BID 12/10/21 12/10/21 History Potassium Chloride [K-Tab ER] 20 meq PO DAILY 12/10/21 12/10/21 History Pyridoxine HCl (Vitamin B6) 25 mg PO DAILY 12/10/21 12/10/21 History [Pyridoxine HCl] Tiotropium 18 Mcg/Puff [Spiriva] 2 puff INHALATION RT-DAILY 12/10/21 12/10/21 History Gabapentin 900 mg PO BID 12/11/21 12/11/21 History Allergies Allergy/AdvReac Type Severity Reaction Status Date / Time No Known Allergies Allergy Verified 12/10/21 16:19 Surgical - Exam Vital Signs Pulse Resp BP Pulse Ox 111 H 18 129/79 98 12/10/21 13:29 12/10/21 13:29 12/10/21 13:29 12/10/21 13:29 Results - Labs 12/13/21 06:53 12/13/21 06:23 Abnormal Lab Results - Last 24 Hours (Table) 12/12/21 12/12/21 12/12/21 Range/Units 06:57 06:57 14:09 RBC 2.17 L (4.40-5.60) X 10*6/uL Hgb 6.8 L* (13.0-17.0) g/dL Hct 21.7 L (39.6-50.0) % MCV 100.0 H (80.0-97.0) fL MCHC 31.3 L (32.0-37.0) g/dL RDW 15.6 H (11.5-14.5) % MPV 8.9 L (9.5-12.2) fL Eosinophils # 0.37 H (0.04-0.35) X 10*3/uL Sodium (137-145) mmol/L Carbon Dioxide 32.4 H (20.0-27.5) mmol/L BUN 8.5 L (9.0-27.0) mg/dL BUN/Creatinine Ratio 9.44 L (12.00-20.00) Ratio Calcium 7.8 L (8.7-10.3) mg/dL Crossmatch See Detail 12/12/21 12/13/21 12/13/21 Range/Units 21:26 06:23 06:53 RBC 2.35 L 2.32 L (4.40-5.60) X 10*6/uL Hgb 7.6 L D 7.6 L (13.0-17.0) g/dL Hct 23.3 L 23.1 L (39.6-50.0) % MCV (80.0-97.0) fL MCHC (32.0-37.0) g/dL RDW 16.5 H 16.0 H (11.5-14.5) % MPV (9.5-12.2) fL Eosinophils # (0.04-0.35) X 10*3/uL Sodium 135 L (137-145) mmol/L Carbon Dioxide 36 H (20.0-27.5) mmol/L BUN 6 L (9.0-27.0) mg/dL BUN/Creatinine Ratio (12.00-20.00) Ratio Calcium 7.3 L (8.7-10.3) mg/dL Crossmatch Diabetes panel 12/12/21 12/13/21 Range/Units 06:57 06:23 Sodium 140 135 L (135-145) mmol/L Potassium 3.7 3.7 (3.5-5.5) mmol/L Chloride 97 98 (96-109) mmol/L Carbon Dioxide 32.4 H 36 H (20.0-27.5) mmol/L BUN 8.5 L 6 L (9.0-27.0) mg/dL Creatinine 0.9 0.97 (0.6-1.5) mg/dL Glucose 89 85 (70-110) mg/dL Calcium 7.8 L 7.3 L (8.7-10.3) mg/dL Calcium panel 12/12/21 12/13/21 Range/Units 06:57 06:23 Calcium 7.8 L 7.3 L (8.7-10.3) mg/dL Pituitary panel 12/12/21 12/13/21 Range/Units 06:57 06:23 Sodium 140 135 L (135-145) mmol/L Potassium 3.7 3.7 (3.5-5.5) mmol/L Chloride 97 98 (96-109) mmol/L Carbon Dioxide 32.4 H 36 H (20.0-27.5) mmol/L BUN 8.5 L 6 L (9.0-27.0) mg/dL Creatinine 0.9 0.97 (0.6-1.5) mg/dL Glucose 89 85 (70-110) mg/dL Calcium 7.8 L 7.3 L (8.7-10.3) mg/dL Adrenal panel 12/12/21 12/13/21 Range/Units 06:57 06:23 Sodium 140 135 L (135-145) mmol/L Potassium 3.7 3.7 (3.5-5.5) mmol/L Chloride 97 98 (96-109) mmol/L Carbon Dioxide 32.4 H 36 H (20.0-27.5) mmol/L BUN 8.5 L 6 L (9.0-27.0) mg/dL Creatinine 0.9 0.97 (0.6-1.5) mg/dL Glucose 89 85 (70-110) mg/dL Calcium 7.8 L 7.3 L (8.7-10.3) mg/dL
[2021-12-13 14:47] VITALS: BP 112/72; PULSE 85; RESP 16
[2021-12-13] MEDS: SODIUM CHLORIDE 0.9% 1,000 ML IV SCH (15:38)
--- NOTE | 2021-12-14 09:37 | PN ---
PROGRESS NOTE White male who has been dizzy with ambulation. We are going to check him for orthostatic hypotension. Neurology is doing a workup for any neurologic problems. Cardiovascular S1-S2. Lungs clear. GI soft. Hematology negative Homans. ASSESSMENT: Dizziness, imbalance with walking with standing up. Will check for orthostatic hypotension. Neurology is working him up for possible hydrocephalus. MRI of the brain has been ordered. Continue PT, OT, and neurologic monitoring. MMODL / IJN: [id number] /
== END 2021-12-13 18:00 | disposition home or self-care (01) | DRG 812 ==
LOC: EC 13:18 → 6NMEDSUR 17:24 → OBSVTOIN 12-13 13:47
PROVIDERS: ADMIT Family Medicine; ATTEND Family Medicine
PROC: 30233N1 Transfusion of Nonautologous Red Blood Cells into Peripheral Vein, Percutaneous Approach (ICD-10-PCS; principal; 2021-12-12)
DX: D64.9 Anemia, unspecified (principal); E87.1 Hypo-osmolality and hyponatremia; F10.239 Alcohol dependence with withdrawal, unspecified; E11.9 Type 2 diabetes mellitus without complications; E86.0 Dehydration; E87.6 Hypokalemia; F17.210 Nicotine dependence, cigarettes, uncomplicated; I10 Essential (primary) hypertension; I95.1 Orthostatic hypotension; J44.9 Chronic obstructive pulmonary disease, unspecified; Z86.010 Personal history of colon polyps; L89.90 Pressure ulcer of unspecified site, unspecified stage; Z79.82 Long term (current) use of aspirin; Z79.899 Other long term (current) drug therapy; Z28.310 Unvaccinated for COVID-19; Z98.890 Other specified postprocedural states; Z79.51 Long term (current) use of inhaled steroids
CPT/HCPCS: 36415; 71045; 80048; 81001; 83880; 84443; 84484; 85025; 85027; 86850; 86900; 86901; 86920; 93005; 94640; 99285